=== PATIENT | male | born 1970 | race Caucasian/White ===

== ENCOUNTER 2017-04-19 11:42 | Emergency (ER) | payer SELFPAY ==
[~2017-04-19] VITALS: Ht 172.7 cm; Wt 58.9 kg
[2017-04-19 13:17] VITALS: BP 120/77
== END 2017-04-19 13:20 | disposition home or self-care (01) ==
LOC: EME 11:42
PROC: 0HQ0XZZ Repair Scalp Skin, External Approach (ICD-10-PCS; principal; 2017-04-19)
DX: S01.01XA Laceration without foreign body of scalp, initial encounter (principal); F17.200 Nicotine dependence, unspecified, uncomplicated; W22.8XXA Striking against or struck by other objects, initial encounter; Y99.0 Civilian activity done for income or pay; Z88.6 Allergy status to analgesic agent; Z88.5 Allergy status to narcotic agent
CPT/HCPCS: 99281; 99284